=== PATIENT | female | born 1995 | race Caucasian/White ===

== ENCOUNTER 2018-05-31 11:10 | Emergency (ER) | payer BC ==
[2018-05-31 11:33] VITALS: BP 135/55
--- NOTE | 2018-05-31 11:42 | UC ---
General HPI - HPI Summary HPI Summary: Symptoms began two days ago - here with her sister. Symptoms started with fever , sore throat and body aches. Cough and congestion. Sore throat progressively worse. Able to tolerate liquids an solids but very painful. +nausea. No vomiting or diarrhea. No rash. No abdominal pain. Did not get a flu shot. Meds: reviewed - History of Current Complaint Chief Complaint: UCRespiratory Stated Complaint: FLU LIKE SYMPTOMS NAUSEA Time Seen by Provider: 05/31/18 11:36 Hx Last Menstrual Period: Pain Intensity: 5 - Allergy/Home Medications Allergies/Adverse Reactions: Allergies Allergy/AdvReac Type Severity Reaction Status Date / Time Penicillins Allergy Hives Verified 05/31/18 11:34 Home Medications: Home Medications Dm/PE/Acetaminophen/Doxylamine [Vicks Dayquil/Nyquil Cold] 1 mis PO ONCE PRN [History Confirmed 05/31/18] guaiFENesin [Mucinex] 1,200 mg PO ONCE PRN 05/31/18 [History Confirmed 05/31/18] PMH/Surg Hx/FS Hx/Imm Hx Previously Healthy: Yes - Surgical History Surgical History: Yes Surgery Procedure, Year, and Place: wisdom tooth - Social History Alcohol Use: Occasionally Substance Use Type: None Smoking Status (MU): Never Smoked Tobacco Review of Systems All Other Systems Reviewed And Are Negative: Yes Constitutional: Positive: Fever, Chills ENT: Positive: Sore Throat, Sinus Congestion Respiratory: Positive: Cough Gastrointestinal: Positive: Nausea Physical Exam Triage Information Reviewed: Yes Appearance: Other: - mildly ill appearing Vital Signs: Initial Vital Signs Temp 99.6 F 05/31/18 11:29 Pulse 130 05/31/18 11:29 Resp 18 05/31/18 11:29 BP 135/55 05/31/18 11:29 Pulse Ox 99 05/31/18 11:29 Vital Signs Reviewed: Yes ENT: Positive: Pharyngeal erythema, Nasal congestion, TMs normal Dental Exam: Normal Neck: Positive: Supple, Tenderness @, Enlarged Nodes @ - anterior cervical chain Respiratory: Positive: Lungs clear, Normal breath sounds Cardiovascular: Positive: RRR, No Murmur Course/Dx - Course Course Of Treatment: This is a 23 yr old who flu like symptoms Positive influenza A Nontoxic appearing No respiratory distress Plan Recommend starting tamiflu as prescribed Continue fluids, rest, ibuprofen as needed for pain/fever Continue symptomatic care including decongestant such as sudafed and cough suppressant such as mucinex - Diagnoses Provider Diagnosis: Influenza A Discharge - Sign-Out/Discharge Documenting (check all that apply): Patient Departure All imaging exams completed and their final reports reviewed: No Studies - Discharge Plan Condition: Fair Disposition: HOME Prescriptions: Oseltamivir CAP* [Tamiflu CAP*] 75 mg PO BID #10 cap Patient Education Materials: Influenza (ED) Forms: *Work Release Referrals: No Primary Care Phys,NOPCP [Primary Care Provider] - Additional Instructions: Recommend starting tamiflu as prescribed Continue fluids, rest, ibuprofen as needed for pain/fever Continue symptomatic care including decongestant such as sudafed and cough suppressant such as mucinex - Billing Disposition and Condition Condition: FAIR Disposition: Home
[2018-05-31 11:47] LABS: Influenza A Molecular POSITIVE (Negative)
== END 2018-05-31 12:05 | disposition home or self-care (01) ==
LOC: UCEAST 11:10
DX: J10.1 Influenza due to other identified influenza virus with other respiratory manifestations (principal); Z88.0 Allergy status to penicillin
CPT/HCPCS: 99212; G0463